=== PATIENT | female | born 1975 | race Two or more races ===

== ENCOUNTER 2016-06-18 14:03 | Inpatient (IN) | payer SELFPAY ==
[~2016-06-18] VITALS: Ht 152.4 cm; Wt 63.5 kg
[~2016-06-18 14:03] MED LIST: BIRTH CONTROL; CHOL500016 PO; HYDR-2666 PO
[2016-06-18] MEDS ORDERED: IV NORMAL SALINE 1000ML BAG 1,000 ML IV SCH (16:43)
[2016-06-18] MEDS ORDERED: ONDANSETRON PF 4 MG/2 ML VIAL. IV ONE (16:45)
[2016-06-18] MEDS ORDERED: FENTANYL PF 100 MCG/2 ML VIAL. IV PRN ×2 (16:45→18:15)
[2016-06-18 17:05] LABS: BILIRUBIN,URINE NEGATIVE (NEG); GLUCOSE,URINE NEGATIVE (NEG); NITRITE,URINE NEGATIVE (NEG); PROTEIN,URINE NEGATIVE (NEG-TRACE); UROBILINOGEN,URINE 0.2 mg/dL (0.2 mg/dL)
[2016-06-18 17:07] LABS: BASO % 1 % (0-3); EOS % 1 % (0-3); HEMOGLOBIN 13.6 g/dL (12.0-15.5); LYMPH # 1.2 x10^3/uL (1.0-4.8); LYMPH % 17 % (24-48); MEAN CORPUSCULAR HEMOGLOBIN 29 pg (25-35); MEAN CORPUSCULAR HGB CONC 34 g/dL (31-37); MEAN CORPUSCULAR VOLUME 86 fL (79-100); MONO % 10 % (0-9); NEUT % 72 % (31-73); PLATELET COUNT 260 x10^3/uL (140-400); RED BLOOD COUNT 4.64 x10^6/uL (3.50-5.40); RED CELL DISTRIBUTION WIDTH 13.1 % (11.5-14.5); WHITE BLOOD COUNT 6.9 x10^3/uL (4.0-11.0)
[2016-06-18 17:15] LABS: BACTERIA,URINE FEW /HPF (0-FEW); RBC,URINE 0 /HPF (0-2); SQUAMOUS EPITHELIAL CELL,UR MANY /LPF
[2016-06-18 17:18] LABS: CREATININE 0.6 mg/dL (0.6-1.0); GFR 109.6; POTASSIUM 3.9 mmol/L (3.5-5.1)
[2016-06-18 17:25] LABS: ALBUMIN 3.6 g/dL (3.4-5.0); DIRECT BILIRUBIN 0.1 mg/dL (0.0-0.2); TOTAL BILIRUBIN 0.7 mg/dL (0.2-1.0); TOTAL PROTEIN 8.8 g/dL (6.4-8.2)
--- NOTE | 2016-06-18 17:45 | PHYS DOC ---
Past Medical History Past Medical History: No Pertinent History Past Surgical History: No Surgical History Alcohol Use: None Drug Use: None Adult General Chief Complaint Chief Complaint: ABDOMINAL PAIN HPI HPI Patient is a 41 year old female who presents with complaint of right upper quadrant abdominal pain. Patient states that her pain has been present for the past 4 days. Patient states that her pain is currently 5 out of 10. The patient followed up with her primary doctor for her pain and had a hepatobiliary scan done earlier this morning. The patient was contacted by her primary care office due to an abnormal scan. Patient denies any significant past medical history. Patient has had nausea and decreased appetite with her symptoms. Patient took ibuprofen to help with symptoms with minimal relief. Review of Systems Review of Systems Constitutional: Denies fever or chills [] Eyes: Denies change in visual acuity, redness, or eye pain [] HENT: Denies nasal congestion or sore throat [] Respiratory: Denies cough or shortness of breath [] Cardiovascular: No additional information not addressed in HPI [] GI: Abdominal pain, nausea, vomiting [] : Denies dysuria or hematuria [] Musculoskeletal: Denies back pain or joint pain [] Integument: Denies rash or skin lesions [] Neurologic: Denies headache, focal weakness or sensory changes [] Endocrine: Denies polyuria or polydipsia [] Current Medications Current Medications Current Medications Medications (Trade) Dose Ordered Sig/Saumya Start Time Stop Time Status Last Admin Dose Admin Fentanyl Citrate 50 mcg 50 mcg PRN Q15MIN PRN 06/18/16 16:45 06/19/16 16:44 06/18/16 16:58 50 MCG Ondansetron HCl (Zofran) 4 mg 1X ONCE 06/18/16 16:45 06/18/16 16:52 DC 06/18/16 16:58 4 MG Sodium Chloride (Iv Sodium Chloride 0.9% 1000ml Bag) 1,000 ml @ 1,000 mls/hr Q1H 06/18/16 16:43 06/18/16 17:42 DC 06/18/16 16:58 1,000 MLS/HR Allergies Allergies Allergies Coded Allergies Type Severity Reaction Last Updated Verified No Known Drug Allergies 10/17/13 No Physical Exam Physical Exam Constitutional: Alert, afebrile, appears ill. [] HENT: Normocephalic, atraumatic, bilateral external ears normal, oropharynx moist, no oral exudates, nose normal. [] Eyes: PERRLA, EOMI, conjunctiva normal, no discharge. [] Neck: Normal range of motion, no tenderness, supple, no stridor. [] Cardiovascular:Heart rate regular rhythm, no murmur [] Lungs & Thorax: Bilateral breath sounds clear to auscultation [] Abdomen: Bowel sounds normal, soft, right upper quadrant tenderness to palpation , mild guarding, no rebound tenderness, no masses, no pulsatile masses. [] Skin: Warm, dry, no erythema, no rash. [] Back: No tenderness, no CVA tenderness. [] Extremities: No tenderness, no cyanosis, no clubbing, ROM intact, no edema. [] Neurologic: Alert and oriented X 3, normal motor function, normal sensory function, no focal deficits noted. [] Current Patient Data Vital Signs Vital Signs Date Time Temp Pulse Resp B/P Pulse Ox O2 Delivery O2 Flow Rate FiO2 06/18/16 17:02 94 18 101/55 100 06/18/16 15:04 98.4 Room Air 98.4 Lab Values Laboratory Tests Test 06/18/16 14:45 06/18/16 14:51 06/18/16 15:25 Urine Collection Type Unknown Urine Color Yellow Urine Clarity Clear Urine pH 7.0 Urine Specific [place] <=1.005 Urine Protein Negativemg/dL (NEG-TRACE) Urine Glucose (UA) Negativemg/dL (NEG) Urine Ketones (Stick) Negativemg/dL (NEG) Urine Blood Negative (NEG) Urine Nitrite Negative (NEG) Urine Bilirubin Negative (NEG) Urine Urobilinogen Dipstick 0.2mg/dL (0.2 mg/dL) Urine Leukocyte Esterase Small (NEG) Urine RBC 0/HPF (0-2) Urine WBC 5-10/HPF (0-4) Urine Squamous Epithelial Cells Many/LPF Urine Bacteria Few/HPF (0-FEW) POC Urine HCG, Qualitative hcg negative (Negative) White Blood Count 6.9x10^3/uL (4.0-11.0) Red Blood Count 4.64x10^6/uL (3.50-5.40) Hemoglobin 13.6g/dL (12.0-15.5) Hematocrit 40.0% (36.0-47.0) Mean Corpuscular Volume 86fL (79-100) Mean Corpuscular Hemoglobin 29pg (25-35) Mean Corpuscular Hemoglobin Concent 34g/dL (31-37) Red Cell Distribution Width 13.1% (11.5-14.5) Platelet Count 260x10^3/uL (140-400) Neutrophils (%) (Auto) 72% (31-73) Lymphocytes (%) (Auto) 17% (24-48) L Monocytes (%) (Auto) 10% (0-9) H Eosinophils (%) (Auto) 1% (0-3) Basophils (%) (Auto) 1% (0-3) Neutrophils # (Auto) 5.0x10^3uL (1.8-7.7) Lymphocytes # (Auto) 1.2x10^3/uL (1.0-4.8) Monocytes # (Auto) 0.6x10^3/uL (0.0-1.1) Eosinophils # (Auto) 0.0x10^3/uL (0.0-0.7) Basophils # (Auto) 0.0x10^3/uL (0.0-0.2) Sodium Level 141mmol/L (136-145) Potassium Level 3.9mmol/L (3.5-5.1) Chloride Level 103mmol/L (98-107) Carbon Dioxide Level 27mmol/L (21-32) Anion Gap 11 (6-14) Blood Urea Nitrogen 8mg/dL (7-20) Creatinine 0.6mg/dL (0.6-1.0) Estimated GFR (Cockcroft-Gault) 109.6 Glucose Level 78mg/dL (70-99) Calcium Level 9.0mg/dL (8.5-10.1) Total Bilirubin 0.7mg/dL (0.2-1.0) # Direct Bilirubin 0.1mg/dL (0.0-0.2) Aspartate Amino Transferase (AST) 17U/L (15-37) Alanine Aminotransferase (ALT) 29U/L (14-59) Alkaline Phosphatase 100U/L (46-116) Total Protein 8.8g/dL (6.4-8.2) H Albumin 3.6g/dL (3.4-5.0) Lipase 82U/L (73-393) Laboratory Tests 06/18/16 15:25 Laboratory Tests 06/18/16 15:25 EKG EKG Not performed [] Radiology/Procedures Radiology/Procedures [facility] [address] [place] [address] IMAGING REPORT Signed PATIENT: SANDEEP LIVINGSTON ACCOUNT: [id number] : 1975 LOCATION: [place] AGE: 41 SEX: F EXAM STATUS: REG CLI ORD. PHYSICIAN: LUDMILA GAO DO REASON: ACUTE UPPER QUADRANT PAIN, HX OF GALLSTONES PROCEDURE: NM HEPATOBILIARY SCAN W PHARM Radionuclide hepatobiliary scan, 06/18/2016: History: Abdominal pain, gallstones Following IV injection of 5 mCi of technetium 99m Choletec there was prompt uptake of the radionuclide from the blood stream by the liver. Activity is present in the bile ducts and small bowel at 15 minutes. Over the first hour, no extension of activity in the gallbladder was delineated. The patient was then injected with 4 mg of morphine IV and additional imaging performed. No definite gallbladder activity is delineated. IMPRESSION: Nonvisualization of the gallbladder suggesting cystic duct obstruction compatible with acute cholecystitis. Note: The findings were discussed with personnel in the [facility] at 1:00 PM on 06/18/2016. DICTATED and SIGNED BY: SOSA RUBIN MD DATE: 06/18/16 1143 CC: LUDMILA GAO DO ~ [] Course & Med Decision Making Course & Med Decision Making Pertinent Labs and Imaging studies reviewed. (See chart for details) Patient's hepatobiliary scan showed evidence of possible acute cholecystitis. Patient's blood work is unremarkable at this time. I consult that Dr. Jacob of general surgery. He agreed to consult on patient in hospital for evaluation and possible need for cholecystectomy. Patient admitted to Dr. Ruiz. Dragon Disclaimer Stephanieon Disclaimer This electronic medical record was generated, in whole or in part, using a voice recognition dictation system. Departure Departure Impression: Primary Impression: Right upper quadrant abdominal pain Disposition: ADMITTED INPATIENT Admitting Physician: Reese Ruiz Condition: STABLE Referrals: LUDMILA GAO DO (PCP) VERONICA CRUZ MD Jun 18, 2016 17:45
[2016-06-18] MEDS ORDERED: ONDANSETRON PF 4 MG/2 ML VIAL. IV PRN ×2 (18:15→19:00)
[2016-06-18] MEDS ORDERED: ACETAMINOPHEN 325 MG TABLET. PO PRN ×2 (18:15→19:00)
[2016-06-18 19:00] VITALS: BP 107/54
[2016-06-18] MEDS ORDERED: HYDROCODONE/APAP 5/325MG TABLET. PO PRN (19:00)
[2016-06-18] MEDS ORDERED: ALBUTEROL SULFATE 2.5 MG/3 ML NEBU. NEB PRN (19:00)
[2016-06-18] MEDS ORDERED: hydrALAZINE 20 MG/ML VIAL. IVP PRN (19:00)
[2016-06-18] MEDS: IV NORMAL SALINE 1000ML BAG 1,000 ML IV SCH (20:18)
--- NOTE | 2016-06-18 20:34 | PDOC1 ---
History and Physical Family History Family History: Diabetes Social History Smoke: No ALCOHOL: none Current Problem List Problem List Problems Medical Problems: (1) Right upper quadrant abdominal pain Status: Acute Current Medications Current Medications Current Medications Medications (Trade) Dose Ordered Sig/Saumya Start Time Stop Time Status Last Admin Dose Admin Acetaminophen (Tylenol) 325 mg PRN Q6HRS PRN 06/18/16 19:00 Acetaminophen/ Hydrocodone Bitart (Lortab 5/325) 1 tab PRN Q6HRS PRN 06/18/16 19:00 Albuterol Sulfate (Ventolin Neb Soln) 2.5 mg PRN Q4HRS PRN 06/18/16 19:00 Fentanyl Citrate (Fentanyl 2ml Vial) 50 mcg PRN Q15MIN PRN 06/18/16 16:45 06/19/16 16:44 06/18/16 16:58 50 MCG Fentanyl Citrate 50 mcg 50 mcg PRN Q2HR PRN 06/18/16 18:15 06/19/16 18:14 Hydralazine HCl (Apresoline) 10 mg PRN Q4HRS PRN 06/18/16 19:00 Morphine Sulfate 2 mg PRN Q2HR PRN 06/18/16 19:00 Ondansetron HCl (Zofran) 4 mg PRN Q8HRS PRN 06/18/16 19:00 Sodium Chloride (Iv Sodium Chloride 0.9% 1000ml Bag) 1,000 ml @ 150 mls/hr Q6H40M 06/18/16 18:04 06/19/16 18:03 06/18/16 20:18 150 MLS/HR Allergies Allergies Allergies Coded Allergies Type Severity Reaction Last Updated Verified No Known Drug Allergies 10/17/13 No ROS Review of System CONSTITUTIONAL: No fever or chills EYES: No recent changes SKIN: No rash or itching CARDIOVASCULAR: No chest pain, syncope, palpitations, or edema RESPIRATORY: No SOB or cough GASTROINTESTINAL: abdominal pain NEUROLOGICAL: No headaches or weakness ENDOCRINE: No cold or heat intolerance GENITOURINARY: No urgency or frequency of urination MUSCULOSKELETAL: No back pain or joint pain LYMPHATICS: No enlarged lymph nodes PSYCHIATRIC: No anxiety or depression Physical Exam Physical Exam GEN.: No apparent distress. Alert and oriented. HEENT: Head is normocephalic, atraumatic NECK: Supple. no jvd LUNGS: Clear to auscultation. normal airflow HEART: RRR, S1, S2 present. Peripheral pulses intact ABDOMEN: Soft, RUQ tender. Positive bowel sounds. EXTREMITIES: Without any cyanosis. NEUROLOGIC: Normal speech, normal tone PSYCHIATRIC: Normal affect, normal mood. SKIN: No ulcerations Vitals Vitals Vital Signs Date Time Temp Pulse Resp B/P Pulse Ox O2 Delivery O2 Flow Rate FiO2 06/18/16 19:25 99 Room Air 06/18/16 18:21 76 20 108/58 06/18/16 15:04 98.4 98.4 Labs Labs Laboratory Tests Test 06/18/16 14:45 06/18/16 14:51 06/18/16 15:25 Urine Collection Type Unknown Urine Color Yellow Urine Clarity Clear Urine pH 7.0 Urine Specific [place] <=1.005 Urine Protein Negativemg/dL (NEG-TRACE) Urine Glucose (UA) Negativemg/dL (NEG) Urine Ketones (Stick) Negativemg/dL (NEG) Urine Blood Negative (NEG) Urine Nitrite Negative (NEG) Urine Bilirubin Negative (NEG) Urine Urobilinogen Dipstick 0.2mg/dL (0.2 mg/dL) Urine Leukocyte Esterase Small (NEG) Urine RBC 0/HPF (0-2) Urine WBC 5-10/HPF (0-4) Urine Squamous Epithelial Cells Many/LPF Urine Bacteria Few/HPF (0-FEW) Bedside Urine HCG, Qualitative hcg negative (Negative) White Blood Count 6.9x10^3/uL (4.0-11.0) Red Blood Count 4.64x10^6/uL (3.50-5.40) Hemoglobin 13.6g/dL (12.0-15.5) Hematocrit 40.0% (36.0-47.0) Mean Corpuscular Volume 86fL (79-100) Mean Corpuscular Hemoglobin 29pg (25-35) Mean Corpuscular Hemoglobin Concent 34g/dL (31-37) Red Cell Distribution Width 13.1% (11.5-14.5) Platelet Count 260x10^3/uL (140-400) Neutrophils (%) (Auto) 72% (31-73) Lymphocytes (%) (Auto) 17% (24-48) Monocytes (%) (Auto) 10% (0-9) Eosinophils (%) (Auto) 1% (0-3) Basophils (%) (Auto) 1% (0-3) Neutrophils # (Auto) 5.0x10^3uL (1.8-7.7) Lymphocytes # (Auto) 1.2x10^3/uL (1.0-4.8) Monocytes # (Auto) 0.6x10^3/uL (0.0-1.1) Eosinophils # (Auto) 0.0x10^3/uL (0.0-0.7) Basophils # (Auto) 0.0x10^3/uL (0.0-0.2) Sodium Level 141mmol/L (136-145) Potassium Level 3.9mmol/L (3.5-5.1) Chloride Level 103mmol/L (98-107) Carbon Dioxide Level 27mmol/L (21-32) Anion Gap 11 (6-14) Blood Urea Nitrogen 8mg/dL (7-20) Creatinine 0.6mg/dL (0.6-1.0) Estimated GFR (Cockcroft-Gault) 109.6 Glucose Level 78mg/dL (70-99) Calcium Level 9.0mg/dL (8.5-10.1) Total Bilirubin 0.7mg/dL (0.2-1.0) Direct Bilirubin 0.1mg/dL (0.0-0.2) Aspartate Amino Transf (AST/SGOT) 17U/L (15-37) Alanine Aminotransferase (ALT/SGPT) 29U/L (14-59) Alkaline Phosphatase 100U/L (46-116) Total Protein 8.8g/dL (6.4-8.2) Albumin 3.6g/dL (3.4-5.0) Lipase 82U/L (73-393) Laboratory Tests Test 06/18/16 14:45 06/18/16 14:51 06/18/16 15:25 Urine Collection Type Unknown Urine Color Yellow Urine Clarity Clear Urine pH 7.0 Urine Specific [place] <=1.005 Urine Protein Negativemg/dL (NEG-TRACE) Urine Glucose (UA) Negativemg/dL (NEG) Urine Ketones (Stick) Negativemg/dL (NEG) Urine Blood Negative (NEG) Urine Nitrite Negative (NEG) Urine Bilirubin Negative (NEG) Urine Urobilinogen Dipstick 0.2mg/dL (0.2 mg/dL) Urine Leukocyte Esterase Small (NEG) Urine RBC 0/HPF (0-2) Urine WBC 5-10/HPF (0-4) Urine Squamous Epithelial Cells Many/LPF Urine Bacteria Few/HPF (0-FEW) Bedside Urine HCG, Qualitative hcg negative (Negative) White Blood Count 6.9x10^3/uL (4.0-11.0) Red Blood Count 4.64x10^6/uL (3.50-5.40) Hemoglobin 13.6g/dL (12.0-15.5) Hematocrit 40.0% (36.0-47.0) Mean Corpuscular Volume 86fL (79-100) Mean Corpuscular Hemoglobin 29pg (25-35) Mean Corpuscular Hemoglobin Concent 34g/dL (31-37) Red Cell Distribution Width 13.1% (11.5-14.5) Platelet Count 260x10^3/uL (140-400) Neutrophils (%) (Auto) 72% (31-73) Lymphocytes (%) (Auto) 17% (24-48) Monocytes (%) (Auto) 10% (0-9) Eosinophils (%) (Auto) 1% (0-3) Basophils (%) (Auto) 1% (0-3) Neutrophils # (Auto) 5.0x10^3uL (1.8-7.7) Lymphocytes # (Auto) 1.2x10^3/uL (1.0-4.8) Monocytes # (Auto) 0.6x10^3/uL (0.0-1.1) Eosinophils # (Auto) 0.0x10^3/uL (0.0-0.7) Basophils # (Auto) 0.0x10^3/uL (0.0-0.2) Sodium Level 141mmol/L (136-145) Potassium Level 3.9mmol/L (3.5-5.1) Chloride Level 103mmol/L (98-107) Carbon Dioxide Level 27mmol/L (21-32) Anion Gap 11 (6-14) Blood Urea Nitrogen 8mg/dL (7-20) Creatinine 0.6mg/dL (0.6-1.0) Estimated GFR (Cockcroft-Gault) 109.6 Glucose Level 78mg/dL (70-99) Calcium Level 9.0mg/dL (8.5-10.1) Total Bilirubin 0.7mg/dL (0.2-1.0) Direct Bilirubin 0.1mg/dL (0.0-0.2) Aspartate Amino Transf (AST/SGOT) 17U/L (15-37) Alanine Aminotransferase (ALT/SGPT) 29U/L (14-59) Alkaline Phosphatase 100U/L (46-116) Total Protein 8.8g/dL (6.4-8.2) Albumin 3.6g/dL (3.4-5.0) Lipase 82U/L (73-393) VTE Prophylaxis Ordered VTE Prophylaxis Devices: Yes VTE Pharmacological Prophylaxi: Yes DAYO SANDERSON MD Jun 18, 2016 20:34
[2016-06-18] MEDS: ENOXAPARIN 40 MG/0.4 ML DISP.SYRIN. SQ SCH (21:00)
[2016-06-18] MEDS: MORPHINE SULFATE 2 MG/ML DISP.SYRIN. IV PRN (23:13)
[2016-06-18 23:35] VITALS: BP 104/47
--- NOTE | 2016-06-18 23:48 | ACF ---
Admission Forms Criteria ABDOMINAL PAIN Clinical Indications for Admission to Inpatient Care (Place 'X' for any and all applicable criteria): Admission is indicated for ANY ONE of the following(1)(2)(3)(4)(5): [X]I. Inpatient admission required rather than observation care (Also use Abdominal Pain: Observation Care, as appropriate) because of ANY ONE of the following: [ ]a) Severe pain requiring acute inpatient management [X]b) Identification of etiology/finding that requires inpatient care (eg, aortic dissection, free air) [ ]c) Absent bowel sounds with complete ileus(6) [ ]d) Suspected toxic megacolon [ ]e) Severe electrolyte abnormalities requiring inpatient care [ ]f) High fever or infection requiring inpatient admission as indicated by ANY ONE of following(7)(8): [ ] i) Appropriate outpatient or observational care antimicrobial treatment unavailable, not effective, or not feasible [ ] ii) Documented bacteremia [ ] iii) Temperature > 104.9 degrees F (oral) [ ] iv) T >103.1 F (oral) or < 96.8 F(rectal) that does not respond to all emergency treatment measures [ ]g) Signs of intestinal obstruction [B] [ ]h) Hemodynamic instability [ ]i) IV fluid to replace significant ongoing losses (greater than 3 L/m2 per day) (12)(13) [ ]j) Percutaneous or open drainage (eg, abscess, biliary tract ) procedures [ ]k) Parenteral nutrition regimen that must be implemented on inpatient basis [ ]l) Other condition,treatment or monitoring requiring inpatient admission. [ ]II. Peritoneal signs present [ ]III. Surgery needed that cannot be performed on an ambulatory basis. [ ]IV. Evaluation requires patient to not eat or drink for extended period ( eg, more than 24 hours). [ ]V. Contraindications and/or Inappropriate clinical situations for Observational Care in patients with abdominal pain, when ANY ONE of the following is required: [ ]a) Thorough evaluation is required to prevent catastrophic events due to delays in diagnosing (e.g.Mesenteric ischemia) 1,3 [ ]b) Patient with severe pathology or with chronic symptoms unlikely to improve in the ED stay (3) [ ]. General contraindications and/or Inappropriate clinical situations for Observational Care in patients with abdominal pain, when ANY ONE of the following is required: [ ]a) Prediction of prolongation of LOS based on ANY ONE of the following may be considered as a contraindication for observational care 2, 3, 4, 5, 6, 7, 8, 9, 10, 11 [ ]i) Age > 65 yrs. [ ]ii) Patient arriving by ambulance [ ]iii) Patient with high acuity [ ]iv) Patient requiring vital sign monitoring [ ]v) Patient on IV medication [ ]b) Systolic blood pressures 180mmHg 3,12 [ ]c) Patient with altered mental status including delirium and other alteration of consciousness, (3) [ ]d) Patient whose discharge disposition will be to a [place] [facility] home or rehabilitation home should not be managed in Emergency Department Observation Unit. CMS rule requires 3 days hospital stay before such placement.3,13 [ ]e) Patient with failure to thrive due to broad array of etiologies 3,16,17 [ ]f) Inability to ambulate 3,14 Extended stay beyond goal length of stay may be needed for(2)(3): [ ]a) Persistent abdominal pain with suspected intra-abdominal process [ ]b) Diagnosed condition requiring continued stay (e.g., pancreatitis, complicated diverticulitis) [ ]c) Surgery (e.g., colectomy) The original [facility] content created by [employer] has been revised. The portions of the content which have been revised are identified through the use of italic text or in bold, and [facility] has neither reviewed nor approved the modified material.All other unmodified content is copyright [facility]. Please see references footnoted in the original [facility] edition 2016 Admission Criteria Met?: Yes MATTEO BIRD Jun 18, 2016 23:48
[2016-06-19] VITALS (13 sets, daily range): BP systolic 99–121; BP diastolic 49–68
--- NOTE | 2016-06-19 02:27 | HP ---
ADMIT DATE: 06/18/2016 CHIEF COMPLAINT: Abdominal pain. HISTORY OF PRESENT ILLNESS: A 41-year old female patient with prior history of gallstones, presented to the primary care doctor's office 2 days ago for abdominal pain. It has been there for nearly 4-5 days, located in the right upper quadrant, pain getting worse with food. She had a scheduled imaging study, hepatobiliary interventional scan, which was done today. As per the report it is suggestive of acute cholecystitis. Primary care office called patient to present to the ER here. Upon arrival to the ER patient denies any fever, however she has some nausea and abdominal pain. She was admitted to the hospital for further evaluation by general surgery and gastroenterology. At the time of my examination patient is still complaining of abdominal pain with mild nausea. Denies any fever or chills, hematemesis or jaundice. PAST MEDICAL HISTORY: gall stones FAMILY HISTORY: Diabetes. PERSONAL HISTORY: No smoking, no alcohol, no drug abuse. ALLERGIES: NKDA. REVIEW OF SYSTEMS AND PHYSICAL EXAMINATION: Please see my electronic H and P. LABORATORY FINDINGS: Sodium is ____, potassium is 3.9, chloride is 103, carbon dioxide 27, anion gap 11. BUN is 8, creatinine 0.6, GFR is ____, glucose 78, total bilirubin 0.7, AST 17, ALT 29, albumin is 3.6. WBC 6.9, hemoglobin is 13.6, MCV is 86. MCHC is 34. Urine: pH is 7, specific gravity less than 1.005, protein negative, nitrites negative, leukocyte esterase is small. IMAGING STUDIES: Nonvisualization of gallbladder suggesting cystic duct obstruction compatible with acute cholecystitis. ASSESSMENT: Right upper quadrant abdominal pain to the gallstone, cholecystitis. PLAN: 1. Admit patient for surgical evaluation. Keep her n.p.o. for now and IV hydration. Pain control with IV morphine 2 mg q. 2 hours. 2. P.r.n. Zofran for nausea. 3. DVT prophylaxis with Lovenox. 4. General surgery consultation. DAYO SANDERSON MD DR: LEATHA/yony JOB#: [id number] / [id number]
[2016-06-19] MEDS: IV NORMAL SALINE 1000ML BAG 1,000 ML IV SCH ×3 (02:43→18:13)
[2016-06-19 05:37] LABS: BASO # 0.1 x10^3/uL (0.0-0.2); BASO % 1 % (0-3); EOS % 2 % (0-3); HEMATOCRIT 36.8 % (36.0-47.0); HEMOGLOBIN 12.3 g/dL (12.0-15.5); LYMPH # 1.5 x10^3/uL (1.0-4.8); LYMPH % 27 % (24-48); MEAN CORPUSCULAR HEMOGLOBIN 29 pg (25-35); MEAN CORPUSCULAR HGB CONC 33 g/dL (31-37); MEAN CORPUSCULAR VOLUME 86 fL (79-100); MONO % 10 % (0-9); NEUT % 60 % (31-73); PLATELET COUNT 208 x10^3/uL (140-400); RED BLOOD COUNT 4.27 x10^6/uL (3.50-5.40); RED CELL DISTRIBUTION WIDTH 12.7 % (11.5-14.5); WHITE BLOOD COUNT 5.5 x10^3/uL (4.0-11.0)
[2016-06-19 05:56] LABS: CREATININE 0.7 mg/dL (0.6-1.0); GFR 91.8; POTASSIUM 3.9 mmol/L (3.5-5.1)
[2016-06-19] MEDS: ENOXAPARIN 40 MG/0.4 ML DISP.SYRIN. SQ SCH (09:00)
[2016-06-19] MEDS ORDERED: IV RINGERS,LACTATED 1000ML 1,000 ML IV SCH (09:16)
[2016-06-19] MEDS ORDERED: MORPHINE SULFATE 2 MG/ML DISP.SYRIN. IV PRN (09:30)
[2016-06-19] MEDS ORDERED: FENTANYL PF 100 MCG/2 ML VIAL. IV PRN ×2 (09:30)
[2016-06-19] MEDS ORDERED: ONDANSETRON PF 4 MG/2 ML VIAL. IV PRN ×2 (09:30→16:30)
[2016-06-19] MEDS ORDERED: PROCHLORPERAZINE 10 MG/2 ML VIAL. IV PRN (09:30)
[2016-06-19] MEDS ORDERED: LIDOCAINE 1% 1 ML SYRINGE. ID PRN (09:30)
[2016-06-19] MEDS: MORPHINE SULFATE 2 MG/ML DISP.SYRIN. IV PRN ×2 (10:06→19:26)
[2016-06-19] MEDS ORDERED: HEPARIN 1,000 UNIT in IV NORMAL SALINE 1,000 ML for SURG PERIOP IRR ONE (10:17)
--- NOTE | 2016-06-19 11:24 | PDOC2 ---
GI CONSULT Reason For Consult: Abdominal pain, acute cholecystitis HPI: HPI: 41 y/o female w/ h/o gallstones (reportedly diagnosed on ultrasound ~5 years ago ), abdominal pain, and abnormal outpatient HIDA suggestive of cystic duct obstruction admitted through the ER. D/w Dr. Jenkins - cholecystectomy planned for this afternoon around 3:00 p.[address]. w/ Dr. Jacob. Labs w/ normal LFTs. She says pain began on 06/14 in the epigastrium and spread diffusely throughout the abdomen. Pain worsened and settled in the RUQ on 06/16. It is worse w/ eating and associated w/ nausea. Denies reflux/heartburn, vomiting, weight loss, diarrhea, constipation, hematochezia, and melena. No previous EGD or colonoscopy. PMH: PMH: migraines (w/ occasional ibuprofen use) FH: Family History: Cancer (cervical - mother, renal - father), Other (sister had cholecystectomy) Social History: Smoke: No ALCOHOL: none Drugs: None ROS: GEN: Denies fevers, chills, sweats HEENT: Denies blurred vision, sore throat CV: Denies chest pain RESP: Denies shortness of air, cough GI: Per HPI : Denies hematuria, dysuria ENDO: Denies weight changes NEURO: Denies confusion, dizziness MSK: Denies weakness, joint pain/swelling SKIN: Denies jaundice, pruritus VItals: Vitals: Vital Signs Date Time Temp Pulse Resp B/P Pulse Ox O2 Delivery O2 Flow Rate FiO2 06/19/16 11:00 98.4 74 18 102/49 96 Room Air 98.4 Labs: Labs: Laboratory Tests Test 06/18/16 14:45 06/18/16 14:51 06/18/16 15:25 06/19/16 05:15 Urine Collection Type Unknown Urine Color Yellow Urine Clarity Clear Urine pH 7.0 Urine Specific [place] <=1.005 Urine Protein Negativemg/dL (NEG-TRACE) Urine Glucose (UA) Negativemg/dL (NEG) Urine Ketones (Stick) Negativemg/dL (NEG) Urine Blood Negative (NEG) Urine Nitrite Negative (NEG) Urine Bilirubin Negative (NEG) Urine Urobilinogen Dipstick 0.2mg/dL (0.2 mg/dL) Urine Leukocyte Esterase Small (NEG) Urine RBC 0/HPF (0-2) Urine WBC 5-10/HPF (0-4) Urine Squamous Epithelial Cells Many/LPF Urine Bacteria Few/HPF (0-FEW) Bedside Urine HCG, Qualitative hcg negative (Negative) White Blood Count 6.9x10^3/uL (4.0-11.0) 5.5x10^3/uL (4.0-11.0) Red Blood Count 4.64x10^6/uL (3.50-5.40) 4.27x10^6/uL (3.50-5.40) Hemoglobin 13.6g/dL (12.0-15.5) 12.3g/dL (12.0-15.5) Hematocrit 40.0% (36.0-47.0) 36.8% (36.0-47.0) Mean Corpuscular Volume 86fL (79-100) 86fL (79-100) Mean Corpuscular Hemoglobin 29pg (25-35) 29pg (25-35) Mean Corpuscular Hemoglobin Concent 34g/dL (31-37) 33g/dL (31-37) Red Cell Distribution Width 13.1% (11.5-14.5) 12.7% (11.5-14.5) Platelet Count 260x10^3/uL (140-400) 208x10^3/uL (140-400) Neutrophils (%) (Auto) 72% (31-73) 60% (31-73) Lymphocytes (%) (Auto) 17% (24-48) 27% (24-48) Monocytes (%) (Auto) 10% (0-9) 10% (0-9) Eosinophils (%) (Auto) 1% (0-3) 2% (0-3) Basophils (%) (Auto) 1% (0-3) 1% (0-3) Neutrophils # (Auto) 5.0x10^3uL (1.8-7.7) 3.3x10^3uL (1.8-7.7) Lymphocytes # (Auto) 1.2x10^3/uL (1.0-4.8) 1.5x10^3/uL (1.0-4.8) Monocytes # (Auto) 0.6x10^3/uL (0.0-1.1) 0.6x10^3/uL (0.0-1.1) Eosinophils # (Auto) 0.0x10^3/uL (0.0-0.7) 0.1x10^3/uL (0.0-0.7) Basophils # (Auto) 0.0x10^3/uL (0.0-0.2) 0.1x10^3/uL (0.0-0.2) Sodium Level 141mmol/L (136-145) 140mmol/L (136-145) Potassium Level 3.9mmol/L (3.5-5.1) 3.9mmol/L (3.5-5.1) Chloride Level 103mmol/L (98-107) 109mmol/L (98-107) Carbon Dioxide Level 27mmol/L (21-32) 23mmol/L (21-32) Anion Gap 11 (6-14) 8 (6-14) Blood Urea Nitrogen 8mg/dL (7-20) 7mg/dL (7-20) Creatinine 0.6mg/dL (0.6-1.0) 0.7mg/dL (0.6-1.0) Estimated GFR (Cockcroft-Gault) 109.6 91.8 Glucose Level 78mg/dL (70-99) 70mg/dL (70-99) Calcium Level 9.0mg/dL (8.5-10.1) 8.0mg/dL (8.5-10.1) Total Bilirubin 0.7mg/dL (0.2-1.0) Direct Bilirubin 0.1mg/dL (0.0-0.2) Aspartate Amino Transf (AST/SGOT) 17U/L (15-37) Alanine Aminotransferase (ALT/SGPT) 29U/L (14-59) Alkaline Phosphatase 100U/L (46-116) Total Protein 8.8g/dL (6.4-8.2) Albumin 3.6g/dL (3.4-5.0) Lipase 82U/L (73-393) Allergies: Coded Allergies: No Known Drug Allergies (Unverified , 10/17/13) Medications: Current Medications Medications (Trade) Dose Ordered Sig/Saumya Route PRN Reason Start Time Stop Time Status Last Admin Dose Admin Fentanyl Citrate 50 mcg 50 mcg PRN Q15MIN PRN IV PAIN GREATER THAN 3/10 06/18/16 16:45 06/19/16 16:44 06/18/16 16:58 Sodium Chloride (Iv Sodium Chloride 0.9% 1000ml Bag) 1,000 ml @ 1,000 mls/hr Q1H IV 06/18/16 16:43 06/18/16 17:42 DC 06/18/16 16:58 Ondansetron HCl 4 mg 4 mg 1X ONCE IV 06/18/16 16:45 06/18/16 16:52 DC 06/18/16 16:58 Sodium Chloride (Iv Sodium Chloride 0.9% 1000ml Bag) 1,000 ml @ 150 mls/hr Q6H40M IV 06/18/16 18:04 06/19/16 18:03 06/19/16 08:34 Morphine Sulfate 2 mg PRN Q2HR PRN IV PAIN 06/18/16 19:00 06/19/16 10:06 Imaging: Imaging: HIDA 06/18/16 IMPRESSION: Nonvisualization of the gallbladder suggesting cystic duct obstruction compatible with acute cholecystitis. PE: GEN: NAD HEENT: Atraumatic, PERRL LUNGS: CTAB HEART: RRR ABD: NABS, S/ND, RUQ and epigastric tenderness EXTREMITY: No edema SKIN: No rashes, no jaundice NEURO/PSYCH: A & O 3 A/P: A/P: RUQ pain w/ nausea -onset 2/3, worse after eating H/o cholelithiasis, abnormal HIDA -suggestive of cystic duct obstruction -LFTs WNL -- Await surgical/IOC findings. IKE SZYMANSKI Jun 19, 2016 11:24
--- NOTE | 2016-06-19 11:36 | PDOC ---
SURGICAL PROGRESS NOTE Subjective 41 yo F with calculous cholecystitis TO OR for lap kandice with grams R/B/a d/w pt Thanks for consult! [id number] Vital Signs Vital Signs Date Time Temp Pulse Resp B/P Pulse Ox O2 Delivery O2 Flow Rate FiO2 06/19/16 11:00 98.4 74 18 102/49 96 Room Air 98.4 I&O Intake and Output 06/19/16 07:00 Intake Total 2700 ml Balance 2700 ml Intake Oral 0 ml IV Total 1350 ml Other 1350 ml # Voids 2 Labs Laboratory Tests Test 06/18/16 14:45 06/18/16 14:51 06/18/16 15:25 06/19/16 05:15 Urine Collection Type Unknown Urine Color Yellow Urine Clarity Clear Urine pH 7.0 Urine Specific [place] <=1.005 Urine Protein Negativemg/dL (NEG-TRACE) Urine Glucose (UA) Negativemg/dL (NEG) Urine Ketones (Stick) Negativemg/dL (NEG) Urine Blood Negative (NEG) Urine Nitrite Negative (NEG) Urine Bilirubin Negative (NEG) Urine Urobilinogen Dipstick 0.2mg/dL (0.2 mg/dL) Urine Leukocyte Esterase Small (NEG) Urine RBC 0/HPF (0-2) Urine WBC 5-10/HPF (0-4) Urine Squamous Epithelial Cells Many/LPF Urine Bacteria Few/HPF (0-FEW) Bedside Urine HCG, Qualitative hcg negative (Negative) White Blood Count 6.9x10^3/uL (4.0-11.0) 5.5x10^3/uL (4.0-11.0) Red Blood Count 4.64x10^6/uL (3.50-5.40) 4.27x10^6/uL (3.50-5.40) Hemoglobin 13.6g/dL (12.0-15.5) 12.3g/dL (12.0-15.5) Hematocrit 40.0% (36.0-47.0) 36.8% (36.0-47.0) Mean Corpuscular Volume 86fL (79-100) 86fL (79-100) Mean Corpuscular Hemoglobin 29pg (25-35) 29pg (25-35) Mean Corpuscular Hemoglobin Concent 34g/dL (31-37) 33g/dL (31-37) Red Cell Distribution Width 13.1% (11.5-14.5) 12.7% (11.5-14.5) Platelet Count 260x10^3/uL (140-400) 208x10^3/uL (140-400) Neutrophils (%) (Auto) 72% (31-73) 60% (31-73) Lymphocytes (%) (Auto) 17% (24-48) 27% (24-48) Monocytes (%) (Auto) 10% (0-9) 10% (0-9) Eosinophils (%) (Auto) 1% (0-3) 2% (0-3) Basophils (%) (Auto) 1% (0-3) 1% (0-3) Neutrophils # (Auto) 5.0x10^3uL (1.8-7.7) 3.3x10^3uL (1.8-7.7) Lymphocytes # (Auto) 1.2x10^3/uL (1.0-4.8) 1.5x10^3/uL (1.0-4.8) Monocytes # (Auto) 0.6x10^3/uL (0.0-1.1) 0.6x10^3/uL (0.0-1.1) Eosinophils # (Auto) 0.0x10^3/uL (0.0-0.7) 0.1x10^3/uL (0.0-0.7) Basophils # (Auto) 0.0x10^3/uL (0.0-0.2) 0.1x10^3/uL (0.0-0.2) Sodium Level 141mmol/L (136-145) 140mmol/L (136-145) Potassium Level 3.9mmol/L (3.5-5.1) 3.9mmol/L (3.5-5.1) Chloride Level 103mmol/L (98-107) 109mmol/L (98-107) Carbon Dioxide Level 27mmol/L (21-32) 23mmol/L (21-32) Anion Gap 11 (6-14) 8 (6-14) Blood Urea Nitrogen 8mg/dL (7-20) 7mg/dL (7-20) Creatinine 0.6mg/dL (0.6-1.0) 0.7mg/dL (0.6-1.0) Estimated GFR (Cockcroft-Gault) 109.6 91.8 Glucose Level 78mg/dL (70-99) 70mg/dL (70-99) Calcium Level 9.0mg/dL (8.5-10.1) 8.0mg/dL (8.5-10.1) Total Bilirubin 0.7mg/dL (0.2-1.0) Direct Bilirubin 0.1mg/dL (0.0-0.2) Aspartate Amino Transf (AST/SGOT) 17U/L (15-37) Alanine Aminotransferase (ALT/SGPT) 29U/L (14-59) Alkaline Phosphatase 100U/L (46-116) Total Protein 8.8g/dL (6.4-8.2) Albumin 3.6g/dL (3.4-5.0) Lipase 82U/L (73-393) Laboratory Tests Test 06/18/16 14:45 06/18/16 14:51 06/18/16 15:25 06/19/16 05:15 Urine Collection Type Unknown Urine Color Yellow Urine Clarity Clear Urine pH 7.0 Urine Specific [place] <=1.005 Urine Protein Negativemg/dL (NEG-TRACE) Urine Glucose (UA) Negativemg/dL (NEG) Urine Ketones (Stick) Negativemg/dL (NEG) Urine Blood Negative (NEG) Urine Nitrite Negative (NEG) Urine Bilirubin Negative (NEG) Urine Urobilinogen Dipstick 0.2mg/dL (0.2 mg/dL) Urine Leukocyte Esterase Small (NEG) Urine RBC 0/HPF (0-2) Urine WBC 5-10/HPF (0-4) Urine Squamous Epithelial Cells Many/LPF Urine Bacteria Few/HPF (0-FEW) Bedside Urine HCG, Qualitative hcg negative (Negative) White Blood Count 6.9x10^3/uL (4.0-11.0) 5.5x10^3/uL (4.0-11.0) Red Blood Count 4.64x10^6/uL (3.50-5.40) 4.27x10^6/uL (3.50-5.40) Hemoglobin 13.6g/dL (12.0-15.5) 12.3g/dL (12.0-15.5) Hematocrit 40.0% (36.0-47.0) 36.8% (36.0-47.0) Mean Corpuscular Volume 86fL (79-100) 86fL (79-100) Mean Corpuscular Hemoglobin 29pg (25-35) 29pg (25-35) Mean Corpuscular Hemoglobin Concent 34g/dL (31-37) 33g/dL (31-37) Red Cell Distribution Width 13.1% (11.5-14.5) 12.7% (11.5-14.5) Platelet Count 260x10^3/uL (140-400) 208x10^3/uL (140-400) Neutrophils (%) (Auto) 72% (31-73) 60% (31-73) Lymphocytes (%) (Auto) 17% (24-48) 27% (24-48) Monocytes (%) (Auto) 10% (0-9) 10% (0-9) Eosinophils (%) (Auto) 1% (0-3) 2% (0-3) Basophils (%) (Auto) 1% (0-3) 1% (0-3) Neutrophils # (Auto) 5.0x10^3uL (1.8-7.7) 3.3x10^3uL (1.8-7.7) Lymphocytes # (Auto) 1.2x10^3/uL (1.0-4.8) 1.5x10^3/uL (1.0-4.8) Monocytes # (Auto) 0.6x10^3/uL (0.0-1.1) 0.6x10^3/uL (0.0-1.1) Eosinophils # (Auto) 0.0x10^3/uL (0.0-0.7) 0.1x10^3/uL (0.0-0.7) Basophils # (Auto) 0.0x10^3/uL (0.0-0.2) 0.1x10^3/uL (0.0-0.2) Sodium Level 141mmol/L (136-145) 140mmol/L (136-145) Potassium Level 3.9mmol/L (3.5-5.1) 3.9mmol/L (3.5-5.1) Chloride Level 103mmol/L (98-107) 109mmol/L (98-107) Carbon Dioxide Level 27mmol/L (21-32) 23mmol/L (21-32) Anion Gap 11 (6-14) 8 (6-14) Blood Urea Nitrogen 8mg/dL (7-20) 7mg/dL (7-20) Creatinine 0.6mg/dL (0.6-1.0) 0.7mg/dL (0.6-1.0) Estimated GFR (Cockcroft-Gault) 109.6 91.8 Glucose Level 78mg/dL (70-99) 70mg/dL (70-99) Calcium Level 9.0mg/dL (8.5-10.1) 8.0mg/dL (8.5-10.1) Total Bilirubin 0.7mg/dL (0.2-1.0) Direct Bilirubin 0.1mg/dL (0.0-0.2) Aspartate Amino Transf (AST/SGOT) 17U/L (15-37) Alanine Aminotransferase (ALT/SGPT) 29U/L (14-59) Alkaline Phosphatase 100U/L (46-116) Total Protein 8.8g/dL (6.4-8.2) Albumin 3.6g/dL (3.4-5.0) Lipase 82U/L (73-393) Problem List Problems Medical Problems: (1) Right upper quadrant abdominal pain Status: Acute Problems: SUSAN RIOS MD Jun 19, 2016 11:36
[2016-06-19] MEDS ORDERED: CEFAZOLIN 2GM PREMIX 50 ML IV ONE (11:45)
[2016-06-19] MEDS ORDERED: METOCLOPRAMIDE HCL 10 MG/2 ML VIAL. ONE (13:28)
[2016-06-19] MEDS ORDERED: MIDAZOLAM HCL 2 MG/2 ML VIAL. ONE (13:28)
[2016-06-19] MEDS ORDERED: PROPOFOL 20 ML IV ONE (13:28)
[2016-06-19] MEDS ORDERED: LIDOCAINE 2% 100 MG/5 ML DISP.SYRIN. ONE (13:28)
[2016-06-19] MEDS ORDERED: FENTANYL PF 250 MCG/5 ML VIAL. ONE (13:28)
[2016-06-19] MEDS ORDERED: FAMOTIDINE 20 MG/2 ML VIAL ONE (13:28)
[2016-06-19] MEDS ORDERED: DEXAMETHASONE SOD PHOS 20 MG/5 ML VIAL. ONE (13:28)
[2016-06-19] MEDS ORDERED: SEVOFLURANE 31 TO 60 MINUTES. IH ONE (13:28)
[2016-06-19] MEDS ORDERED: ROCURONIUM 50 MG/5 ML VIAL. ONE (13:30)
[2016-06-19] MEDS ORDERED: IOHEXOL 300 MG/ML 50 ML VIAL. ONE (14:22)
[2016-06-19] MEDS ORDERED: BUPIVAC MPF-EPI 0.5%-1:200000 30 ML VIAL. ONE (14:22)
[2016-06-19] MEDS ORDERED: SURGICEL HEMOSTAT 2X3 EACH. ONE (14:22)
[2016-06-19] MEDS ORDERED: BISACODYL 10 MG SUPP.RECT ONE (14:22)
[2016-06-19] MEDS ORDERED: ESMOLOL 100 MG/10 ML VIAL. IV ONE (15:14)
--- NOTE | 2016-06-19 15:37 | RAD ---
C-arm fluoroscopy with fluoroscopic spot views Clinical indications: Laparoscopic cholecystectomy. Intraoperative cholangiogram. Total fluoroscopic time: 0.19 minutes. Total fluoroscopic spot views: 2. IMPRESSION: Opacification of the extrahepatic biliary tree is seen. Free flow of contrast material from the common bile duct into the duodenum is seen. No stricture or stone is evident.
[2016-06-19] MEDS ORDERED: NEOSTIGMINE METHYLSULFATE 5 MG/5 ML SYRINGE. ONE (16:04)
[2016-06-19] MEDS: IV RINGERS,LACTATED 1000ML 1,000 ML IV SCH (16:17)
--- NOTE | 2016-06-19 16:25 | PDOC ---
BRIEF OPERATIVE NOTE Pre-Op Diagnosis Calculous cholecystitis Post-Op Diagnosis same Procedure Performed Lap kandice with grams Surgeon Nidia Anesthesia Type: General, Local Blood Loss 150 IV Fluid 1000 Specimens Obtained GB Findings inflammed GB, white bile Complications none Additional Remarks [id number] SUSAN RIOS MD Jun 19, 2016 16:24
[2016-06-19] MEDS ORDERED: HYDROCODONE/APAP 5/325MG TABLET. PO PRN (16:30)
[2016-06-19] MEDS ORDERED: DEXTROSE 50% 25 GM / 50ML DISP.SYRIN. IV PRN (16:30)
[2016-06-19] MEDS ORDERED: 0.9 % SODIUM CHLORIDE 10 ML DISP.SYRIN. IV PRN (16:30)
[2016-06-19] MEDS: HYDROMORPHONE 2 MG/ML VIAL. IV PRN ×2 (17:02→17:14)
[2016-06-19] MEDS: DOCUSATE SODIUM 100 MG CAPSULE PO SCH (21:00)
[2016-06-20] MEDS: IV RINGERS,LACTATED 1000ML 1,000 ML IV SCH (02:36)
[2016-06-20 03:07] VITALS: BP 112/56
[2016-06-20 04:45] LABS: BASO % 0 % (0-3); EOS % 0 % (0-3); HEMATOCRIT 35.3 % (36.0-47.0); HEMOGLOBIN 11.8 g/dL (12.0-15.5); LYMPH # 0.4 x10^3/uL (1.0-4.8); LYMPH % 6 % (24-48); MEAN CORPUSCULAR HEMOGLOBIN 29 pg (25-35); MEAN CORPUSCULAR HGB CONC 33 g/dL (31-37); MEAN CORPUSCULAR VOLUME 86 fL (79-100); MONO % 2 % (0-9); NEUT % 92 % (31-73); PLATELET COUNT 233 x10^3/uL (140-400); RED BLOOD COUNT 4.09 x10^6/uL (3.50-5.40); RED CELL DISTRIBUTION WIDTH 12.6 % (11.5-14.5); WHITE BLOOD COUNT 6.8 x10^3/uL (4.0-11.0)
[2016-06-20 05:22] LABS: CALCIUM 8.5 mg/dL (8.5-10.1); CREATININE 0.6 mg/dL (0.6-1.0); GFR 109.6; POTASSIUM 4.5 mmol/L (3.5-5.1)
[2016-06-20 06:13] LABS: PLT ESTIMATE ADEQUATE (ADEQUATE)
[2016-06-20 07:00] VITALS: BP 95/50
[2016-06-20] MEDS: DOCUSATE SODIUM 100 MG CAPSULE PO SCH (09:00)
[2016-06-20] MEDS: ENOXAPARIN 40 MG/0.4 ML DISP.SYRIN. SQ SCH (09:00)
--- NOTE | 2016-06-20 09:26 | PDOC ---
SURGICAL PROGRESS NOTE Subjective tolerating diet pain managed urinating Vital Signs Vital Signs Date Time Temp Pulse Resp B/P Pulse Ox O2 Delivery O2 Flow Rate FiO2 06/20/16 07:00 98.1 84 17 95/50 99 Room Air 98.1 06/19/16 16:29 10 I&O Intake and Output 06/20/16 07:00 Intake Total 4395 ml Output Total 475 ml Balance 3920 ml Intake Oral 50 ml IV Total 4345 ml Output Urine Total 300 ml Drainage Total 25 ml Estimated Blood Loss 150 ml # Voids 2 General: Alert, Oriented X3, Cooperative, No acute distress Abdomen: Soft, Other (lap dressings dry, earline serosang) Labs Laboratory Tests Test 06/18/16 14:45 06/18/16 14:51 06/18/16 15:25 06/19/16 05:15 Urine Collection Type Unknown Urine Color Yellow Urine Clarity Clear Urine pH 7.0 Urine Specific [place] <=1.005 Urine Protein Negativemg/dL (NEG-TRACE) Urine Glucose (UA) Negativemg/dL (NEG) Urine Ketones (Stick) Negativemg/dL (NEG) Urine Blood Negative (NEG) Urine Nitrite Negative (NEG) Urine Bilirubin Negative (NEG) Urine Urobilinogen Dipstick 0.2mg/dL (0.2 mg/dL) Urine Leukocyte Esterase Small (NEG) Urine RBC 0/HPF (0-2) Urine WBC 5-10/HPF (0-4) Urine Squamous Epithelial Cells Many/LPF Urine Bacteria Few/HPF (0-FEW) Bedside Urine HCG, Qualitative hcg negative (Negative) White Blood Count 6.9x10^3/uL (4.0-11.0) 5.5x10^3/uL (4.0-11.0) Red Blood Count 4.64x10^6/uL (3.50-5.40) 4.27x10^6/uL (3.50-5.40) Hemoglobin 13.6g/dL (12.0-15.5) 12.3g/dL (12.0-15.5) Hematocrit 40.0% (36.0-47.0) 36.8% (36.0-47.0) Mean Corpuscular Volume 86fL (79-100) 86fL (79-100) Mean Corpuscular Hemoglobin 29pg (25-35) 29pg (25-35) Mean Corpuscular Hemoglobin Concent 34g/dL (31-37) 33g/dL (31-37) Red Cell Distribution Width 13.1% (11.5-14.5) 12.7% (11.5-14.5) Platelet Count 260x10^3/uL (140-400) 208x10^3/uL (140-400) Neutrophils (%) (Auto) 72% (31-73) 60% (31-73) Lymphocytes (%) (Auto) 17% (24-48) 27% (24-48) Monocytes (%) (Auto) 10% (0-9) 10% (0-9) Eosinophils (%) (Auto) 1% (0-3) 2% (0-3) Basophils (%) (Auto) 1% (0-3) 1% (0-3) Neutrophils # (Auto) 5.0x10^3uL (1.8-7.7) 3.3x10^3uL (1.8-7.7) Lymphocytes # (Auto) 1.2x10^3/uL (1.0-4.8) 1.5x10^3/uL (1.0-4.8) Monocytes # (Auto) 0.6x10^3/uL (0.0-1.1) 0.6x10^3/uL (0.0-1.1) Eosinophils # (Auto) 0.0x10^3/uL (0.0-0.7) 0.1x10^3/uL (0.0-0.7) Basophils # (Auto) 0.0x10^3/uL (0.0-0.2) 0.1x10^3/uL (0.0-0.2) Sodium Level 141mmol/L (136-145) 140mmol/L (136-145) Potassium Level 3.9mmol/L (3.5-5.1) 3.9mmol/L (3.5-5.1) Chloride Level 103mmol/L (98-107) 109mmol/L (98-107) Carbon Dioxide Level 27mmol/L (21-32) 23mmol/L (21-32) Anion Gap 11 (6-14) 8 (6-14) Blood Urea Nitrogen 8mg/dL (7-20) 7mg/dL (7-20) Creatinine 0.6mg/dL (0.6-1.0) 0.7mg/dL (0.6-1.0) Estimated GFR (Cockcroft-Gault) 109.6 91.8 Glucose Level 78mg/dL (70-99) 70mg/dL (70-99) Calcium Level 9.0mg/dL (8.5-10.1) 8.0mg/dL (8.5-10.1) Total Bilirubin 0.7mg/dL (0.2-1.0) Direct Bilirubin 0.1mg/dL (0.0-0.2) Aspartate Amino Transf (AST/SGOT) 17U/L (15-37) Alanine Aminotransferase (ALT/SGPT) 29U/L (14-59) Alkaline Phosphatase 100U/L (46-116) Total Protein 8.8g/dL (6.4-8.2) Albumin 3.6g/dL (3.4-5.0) Lipase 82U/L (73-393) Test 06/20/16 03:48 White Blood Count 6.8x10^3/uL (4.0-11.0) Red Blood Count 4.09x10^6/uL (3.50-5.40) Hemoglobin 11.8g/dL (12.0-15.5) Hematocrit 35.3% (36.0-47.0) Mean Corpuscular Volume 86fL (79-100) Mean Corpuscular Hemoglobin 29pg (25-35) Mean Corpuscular Hemoglobin Concent 33g/dL (31-37) Red Cell Distribution Width 12.6% (11.5-14.5) Platelet Count 233x10^3/uL (140-400) Neutrophils (%) (Auto) 92% (31-73) Lymphocytes (%) (Auto) 6% (24-48) Monocytes (%) (Auto) 2% (0-9) Eosinophils (%) (Auto) 0% (0-3) Basophils (%) (Auto) 0% (0-3) Neutrophils # (Auto) 6.2x10^3uL (1.8-7.7) Lymphocytes # (Auto) 0.4x10^3/uL (1.0-4.8) Monocytes # (Auto) 0.1x10^3/uL (0.0-1.1) Eosinophils # (Auto) 0.0x10^3/uL (0.0-0.7) Basophils # (Auto) 0.0x10^3/uL (0.0-0.2) Segmented Neutrophils % 88% (35-66) Band Neutrophils % 5% (0-9) Lymphocytes % 6% (24-48) Monocytes % 1% (0-10) Platelet Estimate Adequate (ADEQUATE) Sodium Level 139mmol/L (136-145) Potassium Level 4.5mmol/L (3.5-5.1) Chloride Level 104mmol/L (98-107) Carbon Dioxide Level 21mmol/L (21-32) Anion Gap 14 (6-14) Blood Urea Nitrogen 5mg/dL (7-20) Creatinine 0.6mg/dL (0.6-1.0) Estimated GFR (Cockcroft-Gault) 109.6 Glucose Level 125mg/dL (70-99) Calcium Level 8.5mg/dL (8.5-10.1) Laboratory Tests Test 06/20/16 03:48 White Blood Count 6.8x10^3/uL (4.0-11.0) Red Blood Count 4.09x10^6/uL (3.50-5.40) Hemoglobin 11.8g/dL (12.0-15.5) Hematocrit 35.3% (36.0-47.0) Mean Corpuscular Volume 86fL (79-100) Mean Corpuscular Hemoglobin 29pg (25-35) Mean Corpuscular Hemoglobin Concent 33g/dL (31-37) Red Cell Distribution Width 12.6% (11.5-14.5) Platelet Count 233x10^3/uL (140-400) Neutrophils (%) (Auto) 92% (31-73) Lymphocytes (%) (Auto) 6% (24-48) Monocytes (%) (Auto) 2% (0-9) Eosinophils (%) (Auto) 0% (0-3) Basophils (%) (Auto) 0% (0-3) Neutrophils # (Auto) 6.2x10^3uL (1.8-7.7) Lymphocytes # (Auto) 0.4x10^3/uL (1.0-4.8) Monocytes # (Auto) 0.1x10^3/uL (0.0-1.1) Eosinophils # (Auto) 0.0x10^3/uL (0.0-0.7) Basophils # (Auto) 0.0x10^3/uL (0.0-0.2) Segmented Neutrophils % 88% (35-66) Band Neutrophils % 5% (0-9) Lymphocytes % 6% (24-48) Monocytes % 1% (0-10) Platelet Estimate Adequate (ADEQUATE) Sodium Level 139mmol/L (136-145) Potassium Level 4.5mmol/L (3.5-5.1) Chloride Level 104mmol/L (98-107) Carbon Dioxide Level 21mmol/L (21-32) Anion Gap 14 (6-14) Blood Urea Nitrogen 5mg/dL (7-20) Creatinine 0.6mg/dL (0.6-1.0) Estimated GFR (Cockcroft-Gault) 109.6 Glucose Level 125mg/dL (70-99) Calcium Level 8.5mg/dL (8.5-10.1) Problem List Problems Medical Problems: (1) Calculous cholecystitis Status: Acute (2) Right upper quadrant abdominal pain Status: Acute Assessment/Plan s/p lap kandice ok to mo home, keep drain FU next week with Dr Jacob Problems: YASEMIN ROMERO APRN Jun 20, 2016 09:26
--- NOTE | 2016-06-20 10:51 | PDOC ---
Subjective: Subjective: Feeling better. Just a little pain, eating some. Objective: Objective: Per RN - DC today after drain care instructions. Vital Signs: Vital Signs Date Time Temp Pulse Resp B/P Pulse Ox O2 Delivery O2 Flow Rate FiO2 06/20/16 07:00 98.1 84 17 95/50 99 Room Air 98.1 06/19/16 16:29 10 Labs: Laboratory Tests Test 06/20/16 03:48 White Blood Count 6.8x10^3/uL Red Blood Count 4.09x10^6/uL Hemoglobin 11.8g/dL Hematocrit 35.3% Mean Corpuscular Volume 86fL Mean Corpuscular Hemoglobin 29pg Mean Corpuscular Hemoglobin Concent 33g/dL Red Cell Distribution Width 12.6% Platelet Count 233x10^3/uL Neutrophils (%) (Auto) 92% Lymphocytes (%) (Auto) 6% Monocytes (%) (Auto) 2% Eosinophils (%) (Auto) 0% Basophils (%) (Auto) 0% Neutrophils # (Auto) 6.2x10^3uL Lymphocytes # (Auto) 0.4x10^3/uL Monocytes # (Auto) 0.1x10^3/uL Eosinophils # (Auto) 0.0x10^3/uL Basophils # (Auto) 0.0x10^3/uL Segmented Neutrophils % 88% Band Neutrophils % 5% Lymphocytes % 6% Monocytes % 1% Platelet Estimate Adequate Sodium Level 139mmol/L Potassium Level 4.5mmol/L Chloride Level 104mmol/L Carbon Dioxide Level 21mmol/L Anion Gap 14 Blood Urea Nitrogen 5mg/dL Creatinine 0.6mg/dL Estimated GFR (Cockcroft-Gault) 109.6 Glucose Level 125mg/dL Calcium Level 8.5mg/dL Imaging: IOC 06/19/16 IMPRESSION: Opacification of the extrahepatic biliary tree is seen. Free flow of contrast material from the common bile duct into the duodenum is seen. No stricture or stone is evident. PE: GEN: NAD LUNGS: CTAB HEART: RRR ABD:BS+, S/ND, mild tenderness RUQ, [place] reddish NEURO/PSYCH: A & O 3 A/P: Calculous cholecystitis RUQ pain w/ nausea S/p lap kandice w/ normal IOC 06/19/16 -- Doing well post-operatively. DC per surgery/primary. IKE SZYMANSKI Jun 20, 2016 10:50
[2016-06-20 11:00] VITALS: BP 108/51
[2016-06-20] MEDS ORDERED: DOCU-27 PO (12:34)
[2016-06-20] MEDS ORDERED: HYDR-2666 PO (12:34)
--- NOTE | 2016-06-20 12:37 | PDOC3 ---
Discharge Summary Visit Information Date of Admission: Jun 18, 2016 Date of Discharge: Jun 20, 2016 Admitting Diagnosis: acute abd pain Final Diagnosis acute kandice Calculous cholecystitis RUQ pain w/ nausea -- Doing well post-operatively. DC per surgery/primary. Problems Medical Problems: (1) Calculous cholecystitis Status: Acute (2) Right upper quadrant abdominal pain Status: Acute Brief Hospital Course Allergies Allergies Coded Allergies Type Severity Reaction Last Updated Verified No Known Drug Allergies 06/19/16 No Vital Signs Vital Signs Date Time Temp Pulse Resp B/P Pulse Ox O2 Delivery O2 Flow Rate FiO2 06/20/16 11:38 Room Air 06/20/16 11:00 98.0 86 17 108/51 99 98.0 06/19/16 16:29 10 Lab Results Laboratory Tests Test 06/18/16 14:45 06/18/16 14:51 06/18/16 15:25 06/19/16 05:15 Urine Collection Type Unknown Urine Color Yellow Urine Clarity Clear Urine pH 7.0 Urine Specific [place] <=1.005 Urine Protein Negativemg/dL (NEG-TRACE) Urine Glucose (UA) Negativemg/dL (NEG) Urine Ketones (Stick) Negativemg/dL (NEG) Urine Blood Negative (NEG) Urine Nitrite Negative (NEG) Urine Bilirubin Negative (NEG) Urine Urobilinogen Dipstick 0.2mg/dL (0.2 mg/dL) Urine Leukocyte Esterase Small (NEG) Urine RBC 0/HPF (0-2) Urine WBC 5-10/HPF (0-4) Urine Squamous Epithelial Cells Many/LPF Urine Bacteria Few/HPF (0-FEW) Bedside Urine HCG, Qualitative hcg negative (Negative) White Blood Count 6.9x10^3/uL (4.0-11.0) 5.5x10^3/uL (4.0-11.0) Red Blood Count 4.64x10^6/uL (3.50-5.40) 4.27x10^6/uL (3.50-5.40) Hemoglobin 13.6g/dL (12.0-15.5) 12.3g/dL (12.0-15.5) Hematocrit 40.0% (36.0-47.0) 36.8% (36.0-47.0) Mean Corpuscular Volume 86fL (79-100) 86fL (79-100) Mean Corpuscular Hemoglobin 29pg (25-35) 29pg (25-35) Mean Corpuscular Hemoglobin Concent 34g/dL (31-37) 33g/dL (31-37) Red Cell Distribution Width 13.1% (11.5-14.5) 12.7% (11.5-14.5) Platelet Count 260x10^3/uL (140-400) 208x10^3/uL (140-400) Neutrophils (%) (Auto) 72% (31-73) 60% (31-73) Lymphocytes (%) (Auto) 17% (24-48) 27% (24-48) Monocytes (%) (Auto) 10% (0-9) 10% (0-9) Eosinophils (%) (Auto) 1% (0-3) 2% (0-3) Basophils (%) (Auto) 1% (0-3) 1% (0-3) Neutrophils # (Auto) 5.0x10^3uL (1.8-7.7) 3.3x10^3uL (1.8-7.7) Lymphocytes # (Auto) 1.2x10^3/uL (1.0-4.8) 1.5x10^3/uL (1.0-4.8) Monocytes # (Auto) 0.6x10^3/uL (0.0-1.1) 0.6x10^3/uL (0.0-1.1) Eosinophils # (Auto) 0.0x10^3/uL (0.0-0.7) 0.1x10^3/uL (0.0-0.7) Basophils # (Auto) 0.0x10^3/uL (0.0-0.2) 0.1x10^3/uL (0.0-0.2) Sodium Level 141mmol/L (136-145) 140mmol/L (136-145) Potassium Level 3.9mmol/L (3.5-5.1) 3.9mmol/L (3.5-5.1) Chloride Level 103mmol/L (98-107) 109mmol/L (98-107) Carbon Dioxide Level 27mmol/L (21-32) 23mmol/L (21-32) Anion Gap 11 (6-14) 8 (6-14) Blood Urea Nitrogen 8mg/dL (7-20) 7mg/dL (7-20) Creatinine 0.6mg/dL (0.6-1.0) 0.7mg/dL (0.6-1.0) Estimated GFR (Cockcroft-Gault) 109.6 91.8 Glucose Level 78mg/dL (70-99) 70mg/dL (70-99) Calcium Level 9.0mg/dL (8.5-10.1) 8.0mg/dL (8.5-10.1) Total Bilirubin 0.7mg/dL (0.2-1.0) Direct Bilirubin 0.1mg/dL (0.0-0.2) Aspartate Amino Transf (AST/SGOT) 17U/L (15-37) Alanine Aminotransferase (ALT/SGPT) 29U/L (14-59) Alkaline Phosphatase 100U/L (46-116) Total Protein 8.8g/dL (6.4-8.2) Albumin 3.6g/dL (3.4-5.0) Lipase 82U/L (73-393) Test 06/20/16 03:48 White Blood Count 6.8x10^3/uL (4.0-11.0) Red Blood Count 4.09x10^6/uL (3.50-5.40) Hemoglobin 11.8g/dL (12.0-15.5) Hematocrit 35.3% (36.0-47.0) Mean Corpuscular Volume 86fL (79-100) Mean Corpuscular Hemoglobin 29pg (25-35) Mean Corpuscular Hemoglobin Concent 33g/dL (31-37) Red Cell Distribution Width 12.6% (11.5-14.5) Platelet Count 233x10^3/uL (140-400) Neutrophils (%) (Auto) 92% (31-73) Lymphocytes (%) (Auto) 6% (24-48) Monocytes (%) (Auto) 2% (0-9) Eosinophils (%) (Auto) 0% (0-3) Basophils (%) (Auto) 0% (0-3) Neutrophils # (Auto) 6.2x10^3uL (1.8-7.7) Lymphocytes # (Auto) 0.4x10^3/uL (1.0-4.8) Monocytes # (Auto) 0.1x10^3/uL (0.0-1.1) Eosinophils # (Auto) 0.0x10^3/uL (0.0-0.7) Basophils # (Auto) 0.0x10^3/uL (0.0-0.2) Segmented Neutrophils % 88% (35-66) Band Neutrophils % 5% (0-9) Lymphocytes % 6% (24-48) Monocytes % 1% (0-10) Platelet Estimate Adequate (ADEQUATE) Sodium Level 139mmol/L (136-145) Potassium Level 4.5mmol/L (3.5-5.1) Chloride Level 104mmol/L (98-107) Carbon Dioxide Level 21mmol/L (21-32) Anion Gap 14 (6-14) Blood Urea Nitrogen 5mg/dL (7-20) Creatinine 0.6mg/dL (0.6-1.0) Estimated GFR (Cockcroft-Gault) 109.6 Glucose Level 125mg/dL (70-99) Calcium Level 8.5mg/dL (8.5-10.1) Laboratory Tests Test 06/20/16 03:48 White Blood Count 6.8x10^3/uL (4.0-11.0) Red Blood Count 4.09x10^6/uL (3.50-5.40) Hemoglobin 11.8g/dL (12.0-15.5) Hematocrit 35.3% (36.0-47.0) Mean Corpuscular Volume 86fL (79-100) Mean Corpuscular Hemoglobin 29pg (25-35) Mean Corpuscular Hemoglobin Concent 33g/dL (31-37) Red Cell Distribution Width 12.6% (11.5-14.5) Platelet Count 233x10^3/uL (140-400) Neutrophils (%) (Auto) 92% (31-73) Lymphocytes (%) (Auto) 6% (24-48) Monocytes (%) (Auto) 2% (0-9) Eosinophils (%) (Auto) 0% (0-3) Basophils (%) (Auto) 0% (0-3) Neutrophils # (Auto) 6.2x10^3uL (1.8-7.7) Lymphocytes # (Auto) 0.4x10^3/uL (1.0-4.8) Monocytes # (Auto) 0.1x10^3/uL (0.0-1.1) Eosinophils # (Auto) 0.0x10^3/uL (0.0-0.7) Basophils # (Auto) 0.0x10^3/uL (0.0-0.2) Segmented Neutrophils % 88% (35-66) Band Neutrophils % 5% (0-9) Lymphocytes % 6% (24-48) Monocytes % 1% (0-10) Platelet Estimate Adequate (ADEQUATE) Sodium Level 139mmol/L (136-145) Potassium Level 4.5mmol/L (3.5-5.1) Chloride Level 104mmol/L (98-107) Carbon Dioxide Level 21mmol/L (21-32) Anion Gap 14 (6-14) Blood Urea Nitrogen 5mg/dL (7-20) Creatinine 0.6mg/dL (0.6-1.0) Estimated GFR (Cockcroft-Gault) 109.6 Glucose Level 125mg/dL (70-99) Calcium Level 8.5mg/dL (8.5-10.1) Brief Hospital Course Ms. Barillas is a 41 old admit for acute RUQ pain H/o cholelithiasis, abnormal HIDA, suggestive of cystic duct obstruction -LFTs WNL S/p lap kandice w/ normal IOC 06/19/[address] Jacob pain post op soreness DC to home Discharge Information Condition at Discharge: Improved Follow Up: Weeks Disposition/Orders: D/C to Home Scheduled Cholecalciferol (Vitamin D3) (Vitamin D3) 1 TAB PO DAILY (Reported) Docusate Sodium (Colace) 100 MG PO BID Scheduled PRN Hydrocodone Bit/Acetaminophen (Hydrocodone-Apap 5-325 ) 1 TAB PO PRN Q6HRS PRN PRN PAIN Miscellaneous Medications ([ Control]) (Reported) Patient Instructions Patient Instructions time < 30 CRISSY BLOCK MD Jun 20, 2016 12:37
--- NOTE | 2016-06-21 14:27 | PATHOLOGY ---
PATHOLOGY REPORT * * * * * * * * FINAL DIAGNOSIS: Gallbladder, laparoscopic cholecystectomy: - Cholelithiasis. - Chronic and focal acute hemorrhagic cholecystitis with increased eosinophils. COMMENT: There is no evidence of malignancy. (JPM:; d/t: 06/21/16) REPORT ELECTRONICALLY SIGNED BY: Checo Sharma M.D. DATE/TIME: 06/21/2016 14:26 * * * * * * * * GROSS PATHOLOGY: Received in formalin labeled "Akanksha Barillas and gallbladder sac with contents," is a 10.0 x 3.5 x 2.5 cm, enlarged and intact gallbladder with pink-ron, diffusely hemorrhagic, and wrinkled serosal surfaces with multiple adhesions. Opening the gallbladder reveals red-ron, roughened, and granular mucosa and an average wall thickness of 0.4 cm. A 3.3 cm in greatest dimension yellow-green, ovoid, and granular calculus is present and no masses are noted grossly. Plant [employer]eder sections from the body and fundus are submitted along with the proximal margin in cassette A1. (TTL; 06/20/2016) INITIAL CPT CODE(S): A; 42388 Professional services performed [place] [address] Technical services performed by [facility] at [address] [place] [address], [facility] [address], [place] [address]. SPECIMEN(S) RECEIVED: A.Gallbladder sac with contents CLINICAL HISTORY: Calculous cholecystitis PATIENT: AKANKSHA BARILLAS /AGE: 9 1975 (Age: 41) PATIENT #: [id number] ALT CASE #: SPECIMEN COLLECTION DATE: 06/19/2016 SPECIMEN RECEIVED DATE: 06/20/2016 [facility] - [id number] [place] [address] - PHONE: [phone] * * * END OF REPORT * * *
== END 2016-06-20 15:35 | disposition home or self-care (01) | DRG 418 ==
LOC: ER 14:03 → 4 NORTH 17:36 → ER 18:23
PROVIDERS: ADMIT Internal Medicine; ATTEND Internal Medicine
PROC: BF101ZZ Fluoroscopy of Bile Ducts using Low Osmolar Contrast (ICD-10-PCS; 2016-06-19)
PROC: 0FT44ZZ Resection of Gallbladder, Percutaneous Endoscopic Approach (ICD-10-PCS; principal; 2016-06-19 16:00)
DX: K80.00 Calculus of gallbladder with acute cholecystitis without obstruction (principal); D62 Acute posthemorrhagic anemia; E86.0 Dehydration; Z83.3 Family history of diabetes mellitus; G43.909 Migraine, unspecified, not intractable, without status migrainosus; Z80.51 Family history of malignant neoplasm of kidney; Z80.8 Family history of malignant neoplasm of other organs or systems; Z79.899 Other long term (current) drug therapy
CPT/HCPCS: 36415; 74300; 80048; 80076; 81001; 81025; 83690; 85007; 85027; 87086; 88304; 94250; 96361; 96374; 96375; C1782; J0690; J0780; J1100; J1170; J2250; J2270; J2405; J2704; J2710; J2765; J3010; J3490; J7030; J7120; Q9967; S0028; 99285-25